=== PATIENT | female | born 1945 | race Caucasian/White ===

== ENCOUNTER 2021-03-22 05:19 | Inpatient (IN) ==
[2021-03-22] MEDS ORDERED: Naloxone 0.4 MG/ML INJ IVP PRN (11:46)
[2021-03-22] MEDS ORDERED: Ondansetron 4 MG/2 ML VIAL IVP PRN (11:46)
[2021-03-22] MEDS ORDERED: Perflutren Lipid Microsphere 1.3 ML in 0.9 % Sodium Chloride 8.7 ML IVP PRN (12:33)
[2021-03-22 12:43] LABS: Basophils % 0.7 %; Eosinophils # 0.1 K/mcL (0.0-0.6); Eosinophils % 1.7 %; Hematocrit 44.2 % (35.3-44.9); Hemoglobin 14.4 g/dL (11.5-15.4); Immature Granulocytes % 0.7 % (0-4); Lymphocytes # 1.1 K/mcL (0.6-4.6); Lymphocytes % 19.3 %; Mean Corpuscular HGB Conc 32.6 g/dL (31.6-35.5); Mean Corpuscular Hemoglobin 32.7 pg (28.0-33.3); Mean Corpuscular Volume 100.2 fL (83.0-100.0); Mean Platelet Volume 8.9 fL (9.4-12.4); Monocytes # 0.4 K/mcL (0.0-1.3); Monocytes % 7.3 %; Neutrophils # 3.8 K/mcL (1.6-8.9); Platelet Count 189 K/mcL (140-400); Red Blood Count 4.41 M/mcL (3.82-4.97); Red Cell Distribution Width 12.7 % (11.5-14.5); Segmented Neutrophils % 70.3 %; White Blood Count 5.5 K/mcL (4.3-11.1)
[2021-03-22 13:09] LABS: Troponin I 0.35 ng/mL (< 0.04)
[2021-03-22 13:10] LABS: Calcium 8.9 mg/dL (8.6-10.3); Magnesium 1.7 mg/dL (1.6-2.6); Phosphorous 2.6 mg/dL (2.7-4.5); Potassium 4.4 mEq/L (3.5-5.1)
[2021-03-22] MEDS: Azithromycin 500 MG in 0.9 % Sodium Chloride 250 ML IVPB SCH (14:05)
[2021-03-22] MEDS: tiZANidine 4 MG TABLET PO SCH ×2 (15:42→19:35)
[2021-03-22] MEDS: Ampicillin/Sulbactam 1,500 MG in 0.9 % Sodium Chloride Mini Bag 100 ML IVPB SCH ×2 (18:28→23:10)
[2021-03-22] MEDS: *HR* Heparin 5,000 UNIT/ML VIAL SQ SCH (18:28)
[2021-03-22] MEDS: Gabapentin 300 MG CAPSULE PO SCH (19:35)
[2021-03-22] MEDS: Melatonin 3 MG TABLET PO PRN (21:44)
[2021-03-23] MEDS: *HR* Heparin 5,000 UNIT/ML VIAL SQ SCH ×2 (04:54→18:14)
[2021-03-23] MEDS: Ampicillin/Sulbactam 1,500 MG in 0.9 % Sodium Chloride Mini Bag 100 ML IVPB SCH ×4 (04:55→23:40)
[2021-03-23] MEDS ORDERED: *HR* OxyCODONE Immed Rel 5 MG TABLET PO ONE (05:18)
[2021-03-23 05:33] LABS: Basophils # 0.1 K/mcL (0.0-0.2); Basophils % 1.3 %; Eosinophils # 0.1 K/mcL (0.0-0.6); Eosinophils % 2.8 %; Hematocrit 41.8 % (35.3-44.9); Hemoglobin 13.1 g/dL (11.5-15.4); Immature Granulocytes % 0.4 % (0-4); Lymphocytes % 22.3 %; Mean Corpuscular HGB Conc 31.3 g/dL (31.6-35.5); Mean Corpuscular Hemoglobin 31.3 pg (28.0-33.3); Monocytes # 0.3 K/mcL (0.0-1.3); Monocytes % 7.2 %; Platelet Count 184 K/mcL (140-400); Red Blood Count 4.18 M/mcL (3.82-4.97); Red Cell Distribution Width 12.9 % (11.5-14.5); White Blood Count 4.6 K/mcL (4.3-11.1)
[2021-03-23 05:47] LABS: Calcium 8.7 mg/dL (8.6-10.3); Potassium 4.4 mEq/L (3.5-5.1)
[2021-03-23] MEDS: tiZANidine 4 MG TABLET PO SCH ×3 (09:52→20:38)
[2021-03-23] MEDS: Gabapentin 300 MG CAPSULE PO SCH ×2 (09:52→20:38)
[2021-03-23] MEDS ORDERED: 0.9 % Sodium Chloride 1,000 ML IVC ONE (11:44)
[2021-03-23] MEDS ORDERED: Gabapentin 300 MG CAPSULE PO SCH (12:00)
[2021-03-23] MEDS: 0.9 % Sodium Chloride 1,000 ML IVC SCH ×2 (12:49→22:39)
[2021-03-23] MEDS: Azithromycin 500 MG in 0.9 % Sodium Chloride 250 ML IVPB SCH (13:45)
[2021-03-24 01:18] LABS: Basophils # 0.1 K/mcL (0.0-0.2); Eosinophils # 0.2 K/mcL (0.0-0.6); Eosinophils % 3.2 %; Hematocrit 36.1 % (35.3-44.9); Hemoglobin 11.3 g/dL (11.5-15.4); Immature Granulocytes % 0.4 % (0-4); Lymphocytes # 1.2 K/mcL (0.6-4.6); Mean Corpuscular HGB Conc 31.3 g/dL (31.6-35.5); Mean Corpuscular Hemoglobin 31.8 pg (28.0-33.3); Mean Corpuscular Volume 101.7 fL (83.0-100.0); Mean Platelet Volume 8.9 fL (9.4-12.4); Monocytes # 0.5 K/mcL (0.0-1.3); Monocytes % 9.1 %; Neutrophils # 3.2 K/mcL (1.6-8.9); Platelet Count 169 K/mcL (140-400); Red Blood Count 3.55 M/mcL (3.82-4.97); Red Cell Distribution Width 12.8 % (11.5-14.5); Segmented Neutrophils % 62.3 %; White Blood Count 5.1 K/mcL (4.3-11.1)
[2021-03-24 01:35] LABS: Potassium 4.7 mEq/L (3.5-5.1)
[2021-03-24] MEDS: *HR* Heparin 5,000 UNIT/ML VIAL SQ SCH ×2 (05:13→16:48)
[2021-03-24] MEDS: Ampicillin/Sulbactam 1,500 MG in 0.9 % Sodium Chloride Mini Bag 100 ML IVPB SCH (05:13)
[2021-03-24] MEDS ORDERED: Isovue-370 500 ML BOTTLE IVP ONE (07:26)
[2021-03-24] MEDS: tiZANidine 4 MG TABLET PO SCH ×3 (08:21→21:23)
[2021-03-24] MEDS: Gabapentin 300 MG CAPSULE PO SCH ×2 (08:23→21:23)
[2021-03-24] MEDS: Azithromycin 500 MG in 0.9 % Sodium Chloride 250 ML IVPB SCH (13:13)
[2021-03-24] MEDS: Piperacillin/Tazobactam 3.375 GM in 0.9 % Sodium Chloride Mini Bag 100 ML IVPB SCH ×2 (13:13→21:23)
[2021-03-24] MEDS ORDERED: 0.9 % Sodium Chloride 250 ML IVC ONE (19:06)
[2021-03-24] MEDS: Melatonin 3 MG TABLET PO PRN (21:29)
[2021-03-25 03:33] VITALS: TEMP 97.7
[2021-03-25] MEDS ORDERED: Ringers Solution, Lactated 500 ML IVC ONE (03:45)
[2021-03-25] MEDS: Piperacillin/Tazobactam 3.375 GM in 0.9 % Sodium Chloride Mini Bag 100 ML IVPB SCH (03:49)
[2021-03-25] MEDS: *HR* Heparin 5,000 UNIT/ML VIAL SQ SCH (04:40)
[2021-03-25 07:22] VITALS: BP 113/71; PULSE 74; O2SAT 93
[2021-03-25] MEDS: tiZANidine 4 MG TABLET PO SCH (09:03)
[2021-03-25] MEDS: Gabapentin 300 MG CAPSULE PO SCH (09:05)
[2021-03-25] MEDS ORDERED: Azithromycin 250 MG TABLET PO SCH (13:00)
== END 2021-03-25 13:10 | disposition home or self-care (01) | DRG 193 ==
LOC: 2ANU
PROVIDERS: ADMIT Internal Medicine; ATTEND Internal Medicine